=== PATIENT | female | born 1960 | race African-American/Black ===

== ENCOUNTER 2022-11-17 17:33 | Inpatient (IN) | payer OTHER, BC ==
[2022-11-17] MEDS ORDERED: Midazolam HCl 5 mg/ml Vial ONE (17:58)
[2022-11-17] MEDS ORDERED: Morphine 4 MG/ML VIAL ONE (18:28)
[2022-11-17] MEDS ORDERED: Ketorolac Tromethamine 30 MG/ML VIAL ONE (18:28)
[2022-11-17] MEDS ORDERED: Ondansetron PF 4 MG/2 ML Vial IVP PRN (18:47)
[2022-11-17] MEDS ORDERED: Dextrose 50% Abboject 50 ML SYRINGE SLOW IVP PRN (18:47)
[2022-11-17] MEDS ORDERED: Ipratropium/Albuterol 3 ML NEB NEB PRN (18:47)
[2022-11-17] MEDS ORDERED: Insulin Regular 300 UNITS/3 ML VIAL SC PRN (18:47)
[2022-11-17] MEDS ORDERED: Dextrose 5% in Water 1,000 ML IV PRN (18:47)
[2022-11-17] MEDS ORDERED: Glucagon 1 MG/ML KIT IM PRN (18:47)
[2022-11-17] MEDS ORDERED: Acetaminophen 325 MG TAB PO SCH (19:00)
[2022-11-17 20:05] LABS: #Monocytes 0.6 thou/uL (0.11-0.59); #Neutrophils 6.7 thou/uL (1.40-6.50); %Basophils 0.2 % (0.0-1.0); %Eosinophils 0.3 % (0.0-10.0); %Lymphocytes 21.7 % (21.0-51.0); %Monocytes 6.5 % (0.0-10.0); %Neutrophils 70.9 % (42.0-75.0); Hemoglobin 10.6 g/dL (12.0-16.0); Mean Corpuscular HGB CONC 33.2 g/dL (32.0-36.0); Mean Corpuscular Hemoglobin 29.6 pg (27.0-31.0); Mean Corpuscular Volume 89.1 fl (78.0-98.0); Mean Platelet Volume 9.8 fL (7.4-10.4); Platelet Count 240 10x3/uL (130-400); RBC Distribution Width 12.7 % (11.5-14.5); Red Blood Cell (RBC) Count 3.58 mill/uL (4.20-5.40); White Blood Cell (WBC) Count 9.5 10x3/uL (4.8-10.8)
[2022-11-17 20:26] LABS: Anion Gap 14 mmol/L (10-20); BUN (Urea Nitrogen) 10 mg/dL (9.8-20.1); Calc. Creatinine Clearance 0 mL/min (70-130); Calcium 9.1 mg/dL (7.8-10.44); Carbon Dioxide 24 mmol/L (23-31); Chloride 106 mmol/L (98-107); Estimated GFR 90; Glucose 120 mg/dL (80-115); Potassium 4.1 mmol/L (3.5-5.1); Sodium 140 mmol/L (136-145)
[2022-11-17] MEDS: Famotidine 20 MG TAB PO SCH (21:16)
[2022-11-17] MEDS: Sodium Chloride 0.9% 1,000 ML IV SCH (21:16)
[2022-11-17] MEDS: Senokot S 8.6-50 MG TAB PO SCH (21:16)
[2022-11-17 21:40] VITALS: BMI 28.5
[2022-11-17] MEDS: Acetaminophen 500 MG TAB PO SCH (23:12)
[2022-11-17] MEDS: Cyclobenzaprine 10 MG TAB PO PRN (23:14)
[2022-11-18] MEDS: Sodium Chloride 0.9% 1,000 ML IV SCH ×3 (04:16→20:26)
[2022-11-18] MEDS: Acetaminophen 500 MG TAB PO SCH ×4 (05:39→23:17)
[2022-11-18 05:51] LABS: #Eosinphils 0.1 thou/uL (0.0-0.7); #Monocytes 0.6 thou/uL (0.11-0.59); #Neutrophils 3.1 thou/uL (1.40-6.50); %Basophils 0.2 % (0.0-1.0); %Lymphocytes 38.2 % (21.0-51.0); %Monocytes 9.1 % (0.0-10.0); %Neutrophils 51.2 % (42.0-75.0); Hemoglobin 9.2 g/dL (12.0-16.0); Mean Corpuscular HGB CONC 32.7 g/dL (32.0-36.0); Mean Corpuscular Hemoglobin 29.6 pg (27.0-31.0); Mean Corpuscular Volume 90.4 fl (78.0-98.0); Mean Platelet Volume 9.8 fL (7.4-10.4); Platelet Count 221 10x3/uL (130-400); Red Blood Cell (RBC) Count 3.11 mill/uL (4.20-5.40)
[2022-11-18 06:14] LABS: Anion Gap 10 mmol/L (10-20); BUN (Urea Nitrogen) 14 mg/dL (9.8-20.1); Calc. Creatinine Clearance 81 mL/min (70-130); Calcium 8.5 mg/dL (7.8-10.44); Carbon Dioxide 24 mmol/L (23-31); Chloride 110 mmol/L (98-107); Estimated GFR 83; Glucose 90 mg/dL (80-115); Potassium 3.8 mmol/L (3.5-5.1); Sodium 140 mmol/L (136-145)
[2022-11-18 06:30] LABS: PTT 24.6 sec (22.9-36.1); Prothrombin Time 13.8 sec (12.0-14.7)
[2022-11-18] MEDS ORDERED: CEFAZOLIN 2 GM in Sodium Chloride 0.9% 100 ML IVPB SCH (07:15)
[2022-11-18] MEDS: Polyethylene Glycol 3350 17 GM Packet PO SCH (08:45)
[2022-11-18] MEDS: Famotidine 20 MG TAB PO SCH ×2 (08:45→20:27)
[2022-11-18] MEDS: Senokot S 8.6-50 MG TAB PO SCH ×2 (08:46→20:27)
[2022-11-18] MEDS ORDERED: CEFAZOLIN 2 GM VIAL ONE (10:37)
[2022-11-18] MEDS ORDERED: Sodium Chloride 0.9% 100 ML ONE (10:37)
[2022-11-18] MEDS ORDERED: traMADol HCl 50 MG TAB PO PRN (11:14)
[2022-11-18] MEDS ORDERED: Midazolam HCl 2 mg/2 ml Vial ONE (13:33)
[2022-11-18] MEDS ORDERED: fentaNYL 50 mcg/mL 1 mL Vial ONE ×3 (13:33→15:18)
[2022-11-18] MEDS ORDERED: Ondansetron PF 4 MG/2 ML Vial ONE (13:57)
[2022-11-18] MEDS ORDERED: PROPOFOL 200 MG/20 ML VIAL ONE (13:57)
[2022-11-18] MEDS ORDERED: Ketorolac Tromethamine 30 MG/ML VIAL ONE (13:57)
[2022-11-18] MEDS ORDERED: Lidocaine 1% PF 5 ML VIAL ONE (13:57)
[2022-11-18] MEDS ORDERED: Dexamethasone 20 MG/5 ML VIAL ONE (13:57)
[2022-11-18] MEDS: traMADol HCl 50 MG TAB PO SCH ×3 (14:20→23:17)
[2022-11-18] MEDS: Morphine 2 MG/ML VIAL SLOW IVP PRN ×2 (17:33→23:19)
[2022-11-18] MEDS: CEFAZOLIN 2 GM in Sodium Chloride 0.9% 100 ML IVPB SCH (18:47)
[2022-11-18] MEDS: Cyclobenzaprine 10 MG TAB PO PRN (20:27)
[2022-11-19] MEDS: Sodium Chloride 0.9% 1,000 ML IV SCH (02:15)
[2022-11-19] MEDS: CEFAZOLIN 2 GM in Sodium Chloride 0.9% 100 ML IVPB SCH ×2 (02:15→09:05)
[2022-11-19 04:51] LABS: #Eosinphils 0.1 thou/uL (0.0-0.7); #Monocytes 0.7 thou/uL (0.11-0.59); #Neutrophils 4.5 thou/uL (1.40-6.50); %Basophils 0.1 % (0.0-1.0); %Eosinophils 1.4 % (0.0-10.0); %Neutrophils 61.1 % (42.0-75.0); Hemoglobin 9.9 g/dL (12.0-16.0); Mean Corpuscular HGB CONC 32.4 g/dL (32.0-36.0); Mean Corpuscular Hemoglobin 29.5 pg (27.0-31.0); Mean Corpuscular Volume 91.1 fl (78.0-98.0); Mean Platelet Volume 9.6 fL (7.4-10.4); Platelet Count 200 10x3/uL (130-400); RBC Distribution Width 12.9 % (11.5-14.5); Red Blood Cell (RBC) Count 3.36 mill/uL (4.20-5.40); White Blood Cell (WBC) Count 7.3 10x3/uL (4.8-10.8)
[2022-11-19] MEDS: Acetaminophen 500 MG TAB PO SCH ×2 (05:33→12:11)
[2022-11-19] MEDS: traMADol HCl 50 MG TAB PO SCH ×2 (05:33→12:11)
[2022-11-19] MEDS: Polyethylene Glycol 3350 17 GM Packet PO SCH (08:55)
[2022-11-19] MEDS: Famotidine 20 MG TAB PO SCH (08:55)
[2022-11-19] MEDS: Senokot S 8.6-50 MG TAB PO SCH (08:55)
[2022-11-19 11:36] VITALS: BP 131/74; TEMP 98.7
== END 2022-11-19 15:36 | disposition home or self-care (01) | DRG 494 ==
LOC: ERS 17:33 → SURG B 18:50
PROVIDERS: ADMIT Specialist; ATTEND Specialist
PROC: 0QSJXZZ Reposition Right Fibula, External Approach (ICD-10-PCS; 2022-11-17)
PROC: 0QSGXZZ Reposition Right Tibia, External Approach (ICD-10-PCS; 2022-11-17)
PROC: 0QSJ04Z Reposition Right Fibula with Internal Fixation Device, Open Approach (ICD-10-PCS; principal; 2022-11-18)
PROC: 0QSG04Z Reposition Right Tibia with Internal Fixation Device, Open Approach (ICD-10-PCS; 2022-11-18)
DX: S82.841A Displaced bimalleolar fracture of right lower leg, initial encounter for closed fracture (principal); E11.9 Type 2 diabetes mellitus without complications; I10 Essential (primary) hypertension; J45.909 Unspecified asthma, uncomplicated; E78.5 Hyperlipidemia, unspecified; S82.61XA Displaced fracture of lateral malleolus of right fibula, initial encounter for closed fracture; W19.XXXA Unspecified fall, initial encounter; W01.0XXA Fall on same level from slipping, tripping and stumbling without subsequent striking against object, initial encounter; Z79.51 Long term (current) use of inhaled steroids; Z79.82 Long term (current) use of aspirin; Z79.84 Long term (current) use of oral hypoglycemic drugs; Z79.899 Other long term (current) drug therapy; Z90.711 Acquired absence of uterus with remaining cervical stump; Z98.890 Other specified postprocedural states; Y92.89 Other specified places as the place of occurrence of the external cause; Z90.710 Acquired absence of both cervix and uterus
CPT/HCPCS: 27840; 36415; 36416; 71045; 80048; 85025; 85610; 85730; 86850; 86900; 86901; 93005; 93010; 96374; 96375; 99152; 99153; C1713; G0390; J1100; J1650; J1885; J2250; J2270; J2272; J2405; J2704; J3010; J3490; J7050